=== PATIENT | female | born 1970 | race Two or more races ===

== ENCOUNTER 2017-06-03 12:37 | Inpatient (IN) | payer MEDICAID ==
[~2017-06-03] VITALS: Ht 170.2 cm; Wt 131.5 kg
[2017-06-03 12:50] VITALS: BP 139/84
[2017-06-03 13:46] LABS: BASOPHILS % (AUTO) 1.3 % (0.0-2.0); EOSINOPHILS % (AUTO) 0.3 % (0.0-3.0); HEMATOCRIT 42.8 % (37.0-47.0); HEMOGLOBIN 14.4 G/DL (12.0-16.0); LYMPHOCYTES % (AUTO) 26.6 % (20.0-45.0); MEAN CORPUSCULAR VOLUME 90 FL (80-99); NEUTROPHILS % (AUTO) 67.9 % (45.0-75.0); PLATELET COUNT 384 K/UL (150-450); RED BLOOD COUNT 4.77 M/UL (4.20-5.40); RED CELL DISTRIBUTION WIDTH 12.1 % (11.6-14.8); WHITE BLOOD COUNT 7.8 K/UL (4.8-10.8)
[2017-06-03 13:49] LABS: ANION GAP 12 mmol/L (5-15); BLOOD UREA NITROGEN 6 mg/dL (7-18); CALCIUM 9.7 MG/DL (8.5-10.1); CARBON DIOXIDE 25 MMOL/L (21-32); CHLORIDE 105 MMOL/L (98-107); CREATININE 0.9 MG/DL (0.55-1.30); POTASSIUM 3.7 MMOL/L (3.5-5.1); SODIUM 142 MMOL/L (136-145)
[2017-06-03 13:59] LABS: ALANINE AMINOTRANSFERASE 48 U/L (12-78); ALBUMIN 4.4 G/DL (3.4-5.0); ALBUMIN/GLOBULIN RATIO 1.4 (1.0-2.7); ALKALINE PHOSPHATASE 49 U/L (46-116); ASPARTATE AMINO TRANSFERASE 41 U/L (15-37); BILIRUBIN,TOTAL 0.4 MG/DL (0.2-1.0); CKMB 2.5 NG/ML (0.0-3.6); CREATINE KINASE 351 U/L (26-308)
--- NOTE | 2017-06-03 14:17 | Diagnostic Imaging Report ---
Indication: Chest pain Comparison: None A single view chest radiograph was obtained. Findings: Cardiomediastinal appearance is within normal limits for age. Pulmonary vascularity is appropriate. The diaphragmatic contour is smooth and costophrenic angles are sharp. No pleural effusions are identified. The bones are unremarkable. Impression: No acute findings
--- NOTE | 2017-06-03 14:25 | Diagnostic Imaging Report ---
Indication: Headache Technique: Contiguous 5 mm thick transaxial imaging of the head obtained in a Siemens Sensation [address] scanner. Soft tissue and bone windows generated. Automatic Exposure Control was utilized. Total Dose length Product (DLP): 1435.[address] Dose Index Volume (CTDIvol): 70.38 mGy Comparison: none Findings: The size and configuration of the cortical sulci, basal cisterns, and ventricles are within normal limits for age. There is no mass effect, midline shift, or edema identified. There is no evidence of acute hemorrhage or abnormal intra-axial or extra-axial fluid collections. The bones and soft tissues are unremarkable. Impression: No mass effect, edema or acute bleed. The CT scanner at [facility] is accredited by the [employer] and the scans are performed using dose optimization techniques as appropriate to a performed exam including Automatic Exposure control.
--- NOTE | 2017-06-03 15:33 | Diagnostic Imaging Report ---
Indication: Chest pain Technique: Continuous helical transaxial imaging of the chest was obtained from the thoracic inlet to the upper abdomen during rapid intravenous contrast administration. Arterial phase of enhancement obtained. Coronal 2-D reformats were also obtained and maximum intensity projection images in multiple planes. Study obtained in a Siemens sensation [address] Automatic Exposure Control was utilized. Total Dose length Product (DLP): 1454.[address] Dose Index Volume (CTDIvol): 47.94 mGy Comparison: None Findings: The pulmonary artery is well opacified and shows no filling defects. There is no adenopathy, pleural or pericardial effusions are identified. There is no aortic dissection or aneurysm identified within the chest. The lungs are clear. Visualized part of the upper abdomen is unremarkable. Mild endplate spurs throughout the thoracic spine. Impression: Negative CTA of the chest The CT scanner at [facility] is accredited by the [employer] and the scans are performed using dose optimization techniques as appropriate to a performed exam including Automatic Exposure control.
[2017-06-03 15:34] VITALS: BP 125/69
[2017-06-03] MEDS ORDERED: NKM (15:36)
[2017-06-03 16:31] VITALS: BP 134/86
[2017-06-03 20:00] VITALS: BP 113/63
[2017-06-03] MEDS: Zolpidem 5mg tab ORAL PRN (23:01)
[2017-06-04] VITALS: BP 104/66
--- NOTE | 2017-06-04 02:30 | History and Physical Report ---
DATE OF ADMISSION: 06/03/2017 REASON FOR ADMISSION: Neck, head, and chest pain. HISTORY OF PRESENT ILLNESS: This is a 47-year-old white female with no known history of cardiovascular disease. She states that over the past few weeks, she has had recurring difficulty with swallowing and chewing due to pain in her neck and head radiating to her chest area. She has seen her primary care physician and had a workup that included a cervical spine scan and swallow evaluation, which was described as essentially unrevealing. She has not had nausea, vomiting, choking, or cough. She came to the emergency room today because of her continued concern with the symptoms. PAST MEDICAL HISTORY: Otherwise unremarkable. MEDICATIONS: Prior to admission, none. ALLERGIES: None. SOCIAL HISTORY: Denies smoking, alcohol, or substance abuse. REVIEW OF SYSTEMS: A 10-point review of systems performed. All pertinent positives as outlined above. PHYSICAL EXAMINATION: GENERAL: Moderately obese female, in no acute distress. Slight anxious about her condition, however. VITAL SIGNS: Blood pressure is 134/86, pulse 89, respiratory rate 19, afebrile, and room air oxygen saturation 97%. HEENT: Oropharynx is clear. No thrush. NECK: Supple. in her jaw bone region. LUNGS: Clear. CARDIAC: Regular. Normal S1 and S2. ABDOMEN: Soft. EXTREMITIES: No edema. NEUROLOGIC: Nonfocal. LABORATORY DATA: Chemistry panel and CBC are within normal limits. Troponin is negative. DIAGNOSTIC DATA: CT angiogram of the chest was normal. Head CT was normal. Chest x-ray, no acute findings. EKG revealed sinus rhythm and nonspecific ST change. IMPRESSION: 1. Dysphagia due to throat and neck pain. 2. No signs of weight loss, dehydration, or hypovolemia. 3. No signs of acute coronary syndrome. PLAN: 1. Thyroid panel. 2. Repeat troponin level. 3. CT scan of the cervical spine and facial bones as well as video swallow study. 4. Calorie count. 5. Aspiration precautions. Emmett Ruiz M.D. : MEKA/bertin JOB#: [id number] CC:
[2017-06-04 04:00] VITALS: BP 116/62
--- NOTE | 2017-06-04 08:59 | Diagnostic Imaging Report ---
Indications: Pain Technique: Spiral images obtained through the facial bones. No IV contrast utilized. Multiplanar reconstructions were generated.Total dose length product 570 mGycm. CTDIvol(s) 28.19 mGy. Dose reduction achieved using automated exposure control Comparison: none Findings: No evidence of facial fracture. Intact mandible. No worrisome sinus opacification. The nasal septum is midline. The optic globes are intact. The visualized intracranial structures are unremarkable. Facial soft tissues are unremarkable. The dentition is intact Impression: Negative This agrees with the preliminary interpretation provided overnight by [facility] service. The CT scanner at [facility] is accredited by the [employer] and the scans are performed using protocols designed to limit radiation exposure to as low as reasonably achievable to attain images of sufficient resolution adequate for diagnostic evaluation.
--- NOTE | 2017-06-04 09:07 | Diagnostic Imaging Report ---
Indication: Pain, trauma Technique: Spiral acquisitions obtained through the cervical spine. No IV contrast utilized. Multiplanar reconstructions were generated. Total dose length product 733.31 mGycm. CTDIvol(s) 29.77 mGy. Dose reduction achieved using automated exposure control. Comparison: none Findings: Bony alignment is normal. Vertebral body heights are preserved. The disc spaces are preserved. At C2-3, there is fusion, presumably congenital, of the left facet. There is central posterior disc protrusion, which results in minimal compromise of the spinal canal, slight impingement on the anterior aspect of the cord. The neural foramina are preserved. At C3-4, posterior disc protrusion results in minimal narrowing of the spinal canal, does appear to impinge upon the anterior aspect of the cord. There is mild to moderate right neural foraminal narrowing. At C4-5, there is minimal narrowing of the disc space. At C5-6, there is moderate narrowing of the disc. There is mild narrowing of the left neural foramen. There does appear to be a broad-based central posterior disc protrusion which results in at least moderate narrowing of the spinal canal. Note, however, that the images in this area are somewhat noisy and the degree of pathology is difficult to assess. There is mild narrowing of the left neural foramen at this level. At C6-7, there is mild degenerative disc narrowing. There is mild narrowing of the left neural foramen. No significant disc bulge or protrusion or spinal stenosis. There is mild facet arthrosis on the left. At C7-T1, there is minimal narrowing of the disc. No significant disc bulge or protrusion or spinal stenosis. Included extraspinal soft tissues are unremarkable. Impression: Broad-based central disc protrusion at C5-6, not well demonstrated. The possibly resulting in significant compromise of the spinal canal. Further evaluation with MRI may be useful Other degenerative changes as detailed on a level by level bases above No acute bony trauma This agrees with the preliminary interpretation provided overnight by [facility]. The CT scanner at [facility] is accredited by the [employer] and the scans are performed using protocols designed to limit radiation exposure to as low as reasonably achievable to attain images of sufficient resolution adequate for diagnostic evaluation.
[2017-06-04 10:32] LABS: ALANINE AMINOTRANSFERASE 46 U/L (12-78); ALBUMIN 4.1 G/DL (3.4-5.0); ALBUMIN/GLOBULIN RATIO 1.4 (1.0-2.7); ALKALINE PHOSPHATASE 45 U/L (46-116); ANION GAP 11 mmol/L (5-15); ASPARTATE AMINO TRANSFERASE 39 U/L (15-37); BILIRUBIN,TOTAL 0.5 MG/DL (0.2-1.0); BLOOD UREA NITROGEN 7 mg/dL (7-18); CALCIUM 9.2 MG/DL (8.5-10.1); CARBON DIOXIDE 24 MMOL/L (21-32); CHLORIDE 106 MMOL/L (98-107); CHOLESTEROL 149 MG/DL (< 200); CREATININE 0.8 MG/DL (0.55-1.30); HDL CHOLESTEROL 44 MG/DL (40-60); SODIUM 141 MMOL/L (136-145); TRIGLYCERIDES 102 MG/DL (30-150)
--- NOTE | 2017-06-04 14:45 | Emergency Room Report ---
History of Present Illness General Chief Complaint: General Complaint Source: Patient Present Illness HPI Patient presents with several different complaints Patient complains of left upper chest heaviness and pain Patient reports that she has had difficulty swallowing Has had upper swallow study Patient reports facial imaging and neck imaging All within normal limits however she felt that with attempt at swallowing she was having increased discomfort Symptoms ongoing and worsening over the past several weeks Denies any vomiting or diarrhea however has had decreased oral intake Concomitantly as noted above patient also complained of the left upper midsternal heaviness Allergies: Coded Allergies: No Known Allergies (Unverified , 06/03/17) Patient History Past Medical History: see triage record Pertinent Family History: none Reviewed Nursing Documentation: PMH: Agreed, PSxH: Agreed Nursing Documentation-PMH Hx Cardiac Problems: No Hx Cancer: No Hx Gastrointestinal Problems: Yes - Gall Bladder Removal Review of Systems All Other Systems: negative except mentioned in HPI Physical Exam Vital Signs Date Time Temp Pulse Resp B/P (MAP) Pulse Ox O2 Delivery O2 Flow Rate FiO2 06/03/17 12:28 97.9 175 18 175/95 98 Room Air Sp02 EP Interpretation: reviewed, normal General Appearance: well appearing, no apparent distress Head: normocephalic, atraumatic Eyes: bilateral eye PERRL, bilateral eye EOMI ENT: hearing grossly normal, normal pharynx, TMs + canals normal, uvula midline Neck: full range of motion, supple, no meningismus, no bony tend Respiratory: lungs clear, normal breath sounds, no rhonchi, no respiratory distress, no retraction, no accessory muscle use Cardiovascular #1: normal peripheral pulses, regular rate, rhythm, no edema, no gallop, no JVD, no murmur Gastrointestinal: normal bowel sounds, non tender, soft, no mass, no organomegaly, non-distended, no guarding, no hernia, no pulsatile mass, no rebound Genitourinary: no CVA tenderness Musculoskeletal: normal inspection Neurologic: oriented x3, responsive, 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 nml as tested, motor strength/ tone normal, sensory intact Psychiatric: mood/affect normal Skin: normal color, no rash, warm/dry, palpation normal Lymphatic: normal inspection, no adenopathy Medical Decision Making Diagnostic Impression: Primary Impression: acute coronary syndrome ER Course Multiple differentials considered patient also did complain of heaviness and shortness of breath CT angios obtained CT head was negative CT chest was also negative Patient remained at baseline levels however given her concerns and increased complaints Patient was admitted for further evaluation Labs Test 06/03/17 13:08 06/04/17 05:30 White Blood Count 7.8 K/UL (4.8-10.8) Red Blood Count 4.77 M/UL (4.20-5.40) Hemoglobin 14.4 G/DL (12.0-16.0) Hematocrit 42.8 % (37.0-47.0) Mean Corpuscular Volume 90 FL (80-99) Mean Corpuscular Hemoglobin 30.2 PG (27.0-31.0) Mean Corpuscular Hemoglobin Concent 33.7 G/DL (32.0-36.0) Red Cell Distribution Width 12.1 % (11.6-14.8) Platelet Count 384 K/UL (150-450) Mean Platelet Volume 7.4 FL (6.5-10.1) Neutrophils (%) (Auto) 67.9 % (45.0-75.0) Lymphocytes (%) (Auto) 26.6 % (20.0-45.0) Monocytes (%) (Auto) 4.0 % (1.0-10.0) Eosinophils (%) (Auto) 0.3 % (0.0-3.0) Basophils (%) (Auto) 1.3 % (0.0-2.0) Sodium Level 142 MMOL/L (136-145) 141 MMOL/L (136-145) Potassium Level 3.7 MMOL/L (3.5-5.1) 4.0 MMOL/L (3.5-5.1) Chloride Level 105 MMOL/L (98-107) 106 MMOL/L (98-107) Carbon Dioxide Level 25 MMOL/L (21-32) 24 MMOL/L (21-32) Anion Gap 12 mmol/L (5-15) 11 mmol/L (5-15) Blood Urea Nitrogen 6 mg/dL (7-18) 7 mg/dL (7-18) Creatinine 0.9 MG/DL (0.55-1.30) 0.8 MG/DL (0.55-1.30) Estimat Glomerular Filtration Rate > 60 mL/min (>60) > 60 mL/min (>60) Glucose Level 110 MG/DL (74-106) 95 MG/DL (74-106) Calcium Level 9.7 MG/DL (8.5-10.1) 9.2 MG/DL (8.5-10.1) Total Bilirubin 0.4 MG/DL (0.2-1.0) 0.5 MG/DL (0.2-1.0) Aspartate Amino Transf (AST/SGOT) 41 U/L (15-37) 39 U/L (15-37) Alanine Aminotransferase (ALT/SGPT) 48 U/L (12-78) 46 U/L (12-78) Alkaline Phosphatase 49 U/L (46-116) 45 U/L (46-116) Total Creatine Kinase 351 U/L (26-308) Creatine Kinase MB 2.5 NG/ML (0.0-3.6) Creatine Kinase MB Relative Index 0.7 Troponin I 0.000 ng/mL (0.000-0.056) 0.000 ng/mL (0.000-0.056) Total Protein 7.6 G/DL (6.4-8.2) 7.0 G/DL (6.4-8.2) Albumin 4.4 G/DL (3.4-5.0) 4.1 G/DL (3.4-5.0) Globulin 3.2 g/dL 2.9 g/dL Albumin/Globulin Ratio 1.4 (1.0-2.7) 1.4 (1.0-2.7) Lipase 119 U/L (73-393) Triglycerides Level 102 MG/DL (30-150) Cholesterol Level 149 MG/DL (< 200) LDL Cholesterol 94 mg/dL (<100) HDL Cholesterol 44 MG/DL (40-60) Cholesterol/HDL Ratio 3.4 (3.3-4.4) Thyroid Stimulating Hormone (TSH) 1.890 uiU/mL (0.358-3.740) EKG Diagnostic Results Rate: normal Rhythm: NSR ST Segments: no acute changes Rhythm Strip Diag. Results EP Interpretation: yes Rate: 77 Rhythm: NSR, no PVC's, no ectopy Chest X-Ray Diagnostic Results Chest X-Ray Diagnostic Results : Chest X-Ray Ordered: Yes # of Views/Limited/Complete: 1 View Indication: Chest Pain EP Interpretation: Yes Interpretation: no consolidation, no effusion, no pneumothorax, no acute cardiopulmonary disease Impression: No acute disease Electronically Signed by: Adriana Bach, CT/MRI/US Diagnostic Results CT/MRI/US Diagnostic Results : Impression CT head no acute disease CT chest no acute disease Last Vital Signs Date Time Temp Pulse Resp B/P (MAP) Pulse Ox O2 Delivery O2 Flow Rate FiO2 06/04/17 04:00 71 06/04/17 04:00 98.0 20 116/62 96 Room Air Status: improved Disposition: ADMITTED INPATIENT Condition: Serious Referrals: [facility],REFERRING (PCP) ADRIANA BACH D.O. Jun 04, 2017 14:45
--- NOTE | 2017-06-04 16:01 | Cardiology Report ---
APPROVED REPORT EKG Measurement Heart [id number] ID [id number] Normal sinus rhythm Low voltage QRS Cannot rule out Inferior infarct, age undetermined Cannot rule out Anterior infarct, age undetermined Abnormal ECG
[2017-06-04] MEDS ORDERED: Cyclobenzaprine 10mg Tab ORAL SCH (18:00)
[2017-06-04] MEDS ORDERED: Solu-MEDROL 40mg Inj IVP SCH (21:00)
[2017-06-04] MEDS: Zolpidem 5mg tab ORAL PRN (23:40)
[2017-06-05] VITALS: BP 124/78
[2017-06-05 08:15] VITALS: BP 152/87
[2017-06-05] MEDS ORDERED: Solu-MEDROL 40mg Inj IVP SCH (09:00)
[2017-06-05] MEDS: Cyclobenzaprine 10mg Tab ORAL SCH ×3 (09:35→17:40)
[2017-06-05 15:57] VITALS: BP 141/86
[2017-06-05 20:00] VITALS: BP 122/69
[2017-06-05] MEDS: Zolpidem 5mg tab ORAL PRN (21:48)
--- NOTE | 2017-06-05 23:05 | Consultation ---
DATE OF CONSULTATION: 06/05/2017 GASTROENTEROLOGY CONSULTATION CHIEF COMPLAINT: Dysphagia. HISTORY OF PRESENT ILLNESS: This is a very anxious 47-year-old female with one month history of difficulty with swallowing and numerous other complaints including chest pain, shortness of breath, swelling in the right neck and move to the left neck and so on and so forth. Apparently, had a workup before as an outpatient with CT scan and swallow evaluation, which apparently was nondiagnostic. The patient is very anxious and cannot eat and she was admitted to the hospital for that reason. Denies any significant heartburn. Denies any food getting stuck in her esophagus, but most of her complaint is about her throat and swallowing problem. PAST MEDICAL HISTORY: History of osteoarthritis. PAST SURGICAL HISTORY: Tonsillectomy and cholecystectomy. FAMILY HISTORY: Noncontributory. ALLERGIES: No known drug allergies. MEDICATIONS: Please see medication reconciliation list. SOCIAL HISTORY: The patient denies any tobacco, alcohol, or drug abuse. REVIEW OF SYSTEMS: A 10-point review of systems was performed and pertinent positives in HPI. PHYSICAL EXAMINATION: VITAL SIGNS: Temperature is 98.1, pulse 74, respirations 20, and blood pressure 122/78. HEENT: Normocephalic, atraumatic. Sclerae anicteric. NECK: Supple. No evidence of lymphadenopathy. CARDIOVASCULAR: Regular rate and rhythm. Plus S1 and S2. LUNGS: bilaterally. ABDOMEN: Positive bowel sounds. Soft, nontender. No rebound. No guarding. EXTREMITIES: No cyanosis. No clubbing. No edema. LABORATORY DATA: CBC within normal limits. Chem-7 within normal limits. Liver function tests within normal limits. ASSESSMENT AND PLAN: This is a 47-year-old female with complaint of swallowing problems of unknown etiology. I highly doubt that there is any mechanical problem. She is 47 without any stroke or any other neurological symptoms. No evidence of Parkinson disease and the duration of one month is, I am not sure what that be related to, what I would recommend the patient to be seen by speech therapist. We will start the patient on PPI twice a day for possible acid reflux causing swallowing problems. The patient most probably will benefit from psychiatric assessment to make sure this is not an anxiety presenting itself with difficulty with swallowing. I want to thank, Dr. Emmett Ruiz, for this kind referral. Sivagary Monsalve M.D. DR: NARDA JOB#: [id number] CC: Emmett Ruiz M.D.
--- NOTE | 2017-06-05 23:05 | Progress Note ---
DATE: 06/04/2017 INTERNAL MEDICINE PROGRESS NOTE SUBJECTIVE: The patient is complaining of neck and head pain since admission. She has difficulty chewing and swallowing but has not been choking. She is able to eat soft food. Imaging studies so far reveal normal CT angio of the chest. Normal head CT and normal CT scan of the facial bones. Her cervical spine CT is notable for narrowing and predominantly at C3-C6 with disc protrusion at C5-C6. OBJECTIVE: There is some muscle spasm. LUNGS: Clear. CARDIAC: Regular. Normal S1 and S2. ABDOMEN: Soft. EXTREMITIES: No edema. PLAN: 1. Await swallow evaluation and video swallow study. 2. Steroid trial and muscle relaxant. 3. MRI of the cervical spine to follow. 4. We will likely need to follow up with a spine surgeon long-term. Emmett Ruiz M.D. DR: Maryjane JOB#: [id number] CC:
--- NOTE | 2017-06-06 01:30 | Progress Note ---
DATE: 06/05/2017 INTERNAL MEDICINE PROGRESS NOTE SUBJECTIVE: The patient has continued complaints of headache, neck, and difficulty chewing. Her appetite is good, but she is only eating soft foods. She has no difficulty swallowing, only chewing. OBJECTIVE: NECK: Supple. OROPHARYNX: Clear. LUNGS: Clear. CARDIAC: Regular. ABDOMEN: Soft. EXTREMITIES: No edema. IMPRESSION: Cervical disc disease, which is likely contributing to her presenting symptoms. At this time, we are awaiting MRI scan for further definition of the spine in addition to a video fluoroscopy esophagogram. Once this data is available, the patient will be referred to the appropriate subspecialty for further workup. Emmett Ruiz M.D. DR: BRI JOB#: [id number] CC:
[2017-06-06 04:00] VITALS: BP 122/81
[2017-06-06 08:00] VITALS: BP 129/83
[2017-06-06] MEDS: Cyclobenzaprine 10mg Tab ORAL SCH ×3 (08:20→17:11)
--- NOTE | 2017-06-06 10:12 | General Progress Note ---
Assessment/Plan Assessment/Plan Assessment - atypical dysphagia - r/o significant cervical spine disease - r/o esophageal spasm Recommendations - await advanced C spine imaging - await swallow study - po as tolerated Subjective Allergies: Coded Allergies: No Known Allergies (Unverified , 06/03/17) Subjective No new complaints still c/o neck fullness difficulty swallowing no vomiting Objective Last 24 Hour Vital Signs Date Time Temp Pulse Resp B/P (MAP) Pulse Ox O2 Delivery O2 Flow Rate FiO2 06/06/17 08:11 Room Air 06/06/17 08:00 97.7 80 20 129/83 98 06/06/17 04:00 97.7 69 21 122/81 98 06/05/17 20:00 Room Air 06/05/17 20:00 98.2 90 20 122/69 97 06/05/17 15:57 98.4 79 23 141/86 97 Room Air Intake and Output 06/05/17 06/06/17 19:00 07:00 # Voids 2 # Bowel Movements 1 Laboratory Tests 06/05/17 11:00: Urine HCG, Qualitative Negative Height (Feet): 5 Height (Inches): 7.00 Weight (Pounds): 290 Objective Obese WW NCAT supple CTA RR soft NT ND no edema LUIS F VALDES Jun 06, 2017 10:12
[2017-06-06 16:00] VITALS: BP 110/73
--- NOTE | 2017-06-06 16:56 | Diagnostic Imaging Report ---
Indication: Neck and back pain x1 month Technique: Sagittal T1 FLAIR PROPELLER, sagittal T2 PROPELLOR, sagittal STIR, axial T2 PROPELLER, axial 3D COSMIC ASPIR images were obtained through the cervical spine Comparison: CT scan dated June 03, 2017 Findings: There is straightening of the normal cervical lordosis. Otherwise normal bony alignment. The vertebral body marrow signal is normal. The vertebral body heights are preserved. There is degenerative disc narrowing at C5-6. The intrinsic cord signal is normal. At C2-3, there is minimal circumferential annular bulge and posterior osteophytes, but no significant spinal stenosis or neural foraminal stenosis is demonstrated. At C3-4, there is thickening of the posterior longitudinal ligament as well as circumferential annular bulge and broad-based mild central posterior disc protrusion/osteophyte complex. This results in only borderline narrowing of the spinal canal. There is mild narrowing of the left neural foramen at this level. At C4-5, no significant disc bulge or protrusion or spinal stenosis. There is minimal narrowing of left neural foramen. At C5-6, there is narrowing of the disc. There is circumferential annular bulge which results in borderline narrowing of the spinal canal, to 9 mm minimum AP diameter. No significant cord impingement is demonstrated. There is mild bilateral neural foraminal stenosis. At C6-7, there is left paracentral posterior disc protrusion, broad-based, which may impinge slightly upon the left lateral recess. The neural foramina are nonstenotic. At C7-T1, no significant disc bulge or protrusion, spinal stenosis, or neural foraminal stenosis. The included extraspinal soft tissues are unremarkable. Impression: No acute abnormality Mild degenerative changes, as detailed on a level by level basis above, similar to those reported on recent cervical spine CT
--- NOTE | 2017-06-06 17:04 | Diagnostic Imaging Report ---
Indication: 47-year-old female with neck and back pain x1 month Technique: Sagittal T1 fast spin echo, sagittal T2 fast echo, sagittal STIR, axial T2 fast spin echo and axial T1 images were obtained through the thoracic spine Comparison: none Findings: Bony alignment is normal. Vertebral body heights are preserved. Some of the discs are desiccated but the disc spaces are largely preserved. Vertebral body marrow signal is normal. Intrinsic cord signal is normal. At T5-6, there is minimal posterior disc bulge which does not significantly compromise the spinal canal. At the other levels, no significant disc bulge or protrusion, spinal stenosis, or neural foraminal narrowing. The included extraspinal soft tissues are unremarkable. Impression: Minimal degenerative change, as described above. No acute or significant abnormality
--- NOTE | 2017-06-06 17:50 | Neurology Progress Note ---
Objective Physical Exam Last Vital Signs Date Time Temp Pulse Resp B/P (MAP) Pulse Ox O2 Delivery O2 Flow Rate FiO2 06/06/17 17:08 Room Air 06/06/17 16:00 97.7 78 20 110/73 06/06/17 08:00 98 Impression/Recommendations Problems: (1) new onset of painful dysphagia (2) Headache, tension-type (3) Anxiety Status: stable Recommendations #[id number] LUIS M GROSSMAN Jun 06, 2017 17:50
[2017-06-06] MEDS: clonazePAM 0.5mg tab ORAL SCH (18:00)
--- NOTE | 2017-06-06 18:28 | Cardiology Report ---
APPROVED REPORT EKG Measurement Heart [id number] Suspect arm lead reversal, interpretation assumes no reversal Unusual P axis, possible ectopic atrial rhythm Left posterior fascicular block Inferior infarct, age undetermined Cannot rule out Anterior infarct, age undetermined Abnormal ECG
[2017-06-06 20:00] VITALS: BP 130/84
[2017-06-06] MEDS: Zolpidem 5mg tab ORAL PRN (20:38)
--- NOTE | 2017-06-07 00:15 | Consultation ---
DATE OF CONSULTATION: 06/06/2017 NEUROLOGICAL CONSULTATION CONSULTING PHYSICIAN: Wes Mcdonald M.D. REQUESTING PHYSICIAN: Emmett Ruiz M.D. HISTORY OF PRESENT ILLNESS: The patient is a 47 years old female, seen in neurological consultation to evaluate the presence of myasthenia gravis versus myasthenic syndrome. The patient informed me that she was in her usual state of health with only medical issue is her osteoarthritis affecting lower back and both knees, then about one month ago after having drink of sprite, she felt immediately feeling sensation of that right side of the neck and head like "clogged up." She developed severe pressure headache. She also noted to have increased blood pressure, she developed severe anxiety, "panic attacks," and swallowing difficulties mainly swallowing of hard food, but no difficulties with liquids. Swallowing become painful. In addition, she developed some aches and pains in her upper back and neck, persistent dull pressure likes and headaches, continues difficulty swallowing. The patient felt increasing symptomatology, called paramedics. Blood pressure in the field 168/120, repeat study 160/118, heart rate of 80, and respirations 18. The patient was complaining of severe neck pain for the last few weeks. There was no nausea or vomiting. No chest pain. No weakness. She was brought to the emergency room presenting with upper chest heaviness and pain, difficulty swallowing, which become worsening in the last few weeks, but she developed some upper midsternal heaviness. Blood pressure remained high 175/95 on examination, otherwise . She had additional diagnostic studies, this included CT scan of the brain, which revealed no any acute intracranial abnormalities, no midline shift. CT angiogram of the chest with contrast was negative. A chest x-ray revealed no acute abnormalities and no mass lesions. Facial bones CT scan without contrast, no abnormality, and CT scan of the cervical spine revealed multilevel degenerative joint disease, no evidence of cord compression, although C5-C6 disc protrusion caused moderate narrowing of spinal canal. The patient's gastroenterology workup was obtained confirming presence of swallowing problem of unknown etiology. A swallow study was obtained and this was suggestive that patient may have a neuromuscular abnormality and with myasthenia gravis and for this, Neurology consult was requested. Meanwhile, the patient to continue with diagnostic studies including thoracic spine MRI, which was negative and the cervical spine MRI revealed multilevel degenerative joint disease with no evidence of cord compression. Her laboratory work included a normal CBC study, negative test. Her CMC study revealed a glucose 110, AST 41, and CPK 351, otherwise normal study including TSH, lipid panel, and troponin. Her vital signs during hospitalization were unremarkable with initial elevation of blood pressure then subsiding down to normal, latest 110/73. PAST MEDICAL HISTORY: History of osteoarthritis affecting low back and knees, she is maintained on Motrin, Aleve, at times for allergies, Benadryl. The patient denies any other major medical problems. She denies being depressed or anxious. 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 No alcohol. No drug abuse. Nonsmoker. FAMILY HISTORY: Noncontributory. REVIEW OF SYMPTOMS: Anxious, concerned with the increasing difficulty swallowing, and increase in blood pressure. She has dull tension headaches, aches and pains in her upper back and neck, weakness of both upper extremities, poor difficulty swallowing especially solid food causing some retrosternal pain. She has some problem with walking, stating that her swallowing affecting neck, face, and gait. PHYSICAL EXAMINATION: GENERAL: A well-developed, moderately obese female, not in acute distress. VITAL SIGNS: Stable. Blood pressure 128/80, respirations 14, and temperature 98.1. HEENT: Head normocephalic. No evidence of trauma. Eyes, ears, and throat are clear. NECK: Supple. No meningeal signs. There is mild tenderness on palpation of cervical paraspinal region. Range of motion normal. There is mild tenderness on palpation of thoracic paraspinal region. Range of motion normal. EXTREMITIES: Upper and lower extremities without clubbing, cyanosis, or edema. Peripheral pulses, 1+ and symmetric. MENTAL STATUS: The patient is alert and oriented x3. Her speech is fluent. Language intact. There is no aphasia. No apraxia. The patient is somewhat anxious and very concerned with ongoing symptomatology and appreciating lower extremity workup. CRANIAL NERVE II: Pupils both responding to light and accommodation. Extraocular movements intact. No nystagmus. CRANIAL NERVE V: Normal corneal responses. CRANIAL NERVE VII: No facial asymmetry. CRANIAL NERVE VIII: Normal hearing. CRANIAL NERVE IX THROUGH XII: Tongue is in midline. Symmetric palate elevation. MOTOR EXAMINATION: Motor examination, normal muscle tone. Strength is 5/5 in all extremities. No involuntary movement. Deep tendon reflexes, 1+ symmetric with downgoing toes on both sides. Sensory exam normal to pinprick and light touch. Gait is stable. IMPRESSION: 1. This is a 47-year-old female with a new onset of painful dysphagia, tension headache, aches and pains of upper back and neck. No evidence of neuromuscular disorder. No evidence of focal neurological deficit noted. 2. Multilevel cervical discogenic disease with no evidence of cord lesion. 3. Anxiety syndrome. 4. Obesity. 5. Osteoarthritis. RECOMMENDATIONS: We will rule out collagen vascular disease, myasthenic syndrome. Laboratory work will include acetylcholine receptor antibody, MARY ANN, ANCA, , sedimentation rate, and CRP. The patient will start on Klonopin 0.25 mg three times a day. The patient to complete her gastrointestinal workup. Thank you for allowing me to see this interesting patient in neurological consultation. Wes Mcdonald M.D. DR: LILIA JOB#: [id number] CC:
[2017-06-07 04:47] VITALS: BP 130/66
[2017-06-07 08:00] VITALS: BP 120/78
[2017-06-07] MEDS: Cyclobenzaprine 10mg Tab ORAL SCH ×3 (08:27→17:34)
[2017-06-07] MEDS: clonazePAM 0.5mg tab ORAL SCH ×3 (09:00→17:34)
--- NOTE | 2017-06-07 11:45 | Progress Note ---
DATE: 06/07/2017 SUBJECTIVE: The patient continues to complain of difficulty swallowing, pain in her neck, but no choking. OBJECTIVE: VITAL SIGNS: Blood pressure 129/83, heart rate 80, and respiratory rate 20. Afebrile. IMAGING: Studies were notable for abnormal swallow mechanism in the distal esophagus. MRI of the spine revealed mild degenerative disease. seen. Rheumatologic panel is pending. IMPRESSION: 1. Dysphagia. 2. Cervical disc disease. 3. Possible sicca syndrome. PLAN: GI and neurologic followup. Await laboratory studies. Aspiration precaution. Final recommendations and discharge plan to follow sales consultant insurance's input. Emmett Ruiz M.D. DR: CARY JOB#: [id number] CC:
[2017-06-07 12:00] VITALS: BP 116/85
[2017-06-07 16:00] VITALS: BP 129/87
[2017-06-07 20:00] VITALS: BP 113/70
--- NOTE | 2017-06-07 22:03 | General Progress Note ---
Assessment/Plan Assessment/Plan Assessment - atypical dysphagia - r/o significant cervical spine disease - r/o esophageal spasm Recommendations - PPI - await esophogram - po as tolerated Subjective Allergies: Coded Allergies: No Known Allergies (Unverified , 06/03/17) Subjective No new complaints still c/o neck fullness difficulty swallowing no vomiting Objective Last 24 Hour Vital Signs Date Time Temp Pulse Resp B/P (MAP) Pulse Ox O2 Delivery O2 Flow Rate FiO2 06/07/17 20:00 97.3 71 20 113/70 98 06/07/17 16:00 98.1 82 20 129/87 98 06/07/17 12:00 98.2 81 20 116/85 98 06/07/17 08:00 96.4 85 20 120/78 06/07/17 04:47 98.1 77 18 130/66 99 Intake and Output 06/06/17 06/07/17 19:00 07:00 Intake Total 240 ml 240 ml Balance 240 ml 240 ml Intake Oral 240 ml 240 ml # Voids 3 2 Height (Feet): 5 Height (Inches): 7.00 Weight (Pounds): 290 Objective Obese WW NCAT supple CTA RR soft NT ND no edema LUIS F VALDES Jun 07, 2017 22:03
[2017-06-08] VITALS (7 sets, daily range): BP systolic 97–131; BP diastolic 65–87
--- NOTE | 2017-06-08 07:15 | Progress Note ---
DATE: 06/07/2017 SUBJECTIVE: Condition unchanged. The patient still complains of difficulty chewing and swallowing due to pain. Diagnostic workup in progress. Neurology and GI consults and followups appreciated. OBJECTIVE: VITAL SIGNS: Stable, afebrile. HEENT: Oropharynx clear. NECK: Supple. Loss of curvature of neck noted. LUNGS: Clear. CARDIAC: Regular. ABDOMEN: Soft. EXTREMITIES: No edema. IMPRESSION: 1. Cervical disk disease. 2. Dysphagia. 3. Obesity. PLAN: 1. Await MRI imaging of the soft tissues of the neck. 2. Await serologies that have been sent out with regard to myasthenia gravis and rheumatologic disorders. 3. Continue dietary restrictions and aspiration precautions. Emmett Ruiz M.D. DR: LALIT JOB#: [id number] CC:
[2017-06-08] MEDS: Cyclobenzaprine 10mg Tab ORAL SCH ×3 (08:19→18:35)
[2017-06-08] MEDS: clonazePAM 0.5mg tab ORAL SCH ×3 (08:19→18:35)
--- NOTE | 2017-06-08 12:43 | Diagnostic Imaging Report ---
Indication: Dysphagia, pain on the right side when swallowing, sensation of things stuck Technique: Patient ingested effervescent granules, thick and thin liquid barium, and rapid sequence spot images, static spot and overhead images were obtained Comparison: none Findings: There is a slight degree of esophageal dysmotility with some tertiary contractions, particularly distally. There is some delayed emptying of residual contrast. No strictures, ulcerations, or intraluminal filling defects demonstrated. There is a minimal sliding-type hiatal hernia. No gastroesophageal reflux was observed fluoroscopically. The stomach appears unremarkable. Impression: Mild esophageal dysmotility. This could be age-related or secondary to reflux Minimal sliding-type hiatal hernia Otherwise unremarkable
--- NOTE | 2017-06-08 14:15 | Diagnostic Imaging Report ---
Indication: Neck pain when swallowing Technique: Sagittal T 2 fast spin-echo, coronal T1 and fast spin echo, coronal T2 fat saturated, coronal T2 STIR, axial T2 STIR, axial T1 fast spin echo, axial T2 fat saturated, pre and postcontrast axial T1 fat saturated fast spin echo, postcontrast coronal T1 fast spin echo images of the neck Comparison: none Findings: 6 mm high T2 intensity nodule is seen within the right thyroid lobe. No abnormal cervical fluid collections demonstrated. No cervical mass or adenopathy. There is asymmetric appearance of the left internal jugular vein, likely reflecting sluggish flow. There may be some narrowing of the down stream internal jugular vein just above the confluence with the subclavian vein. No unusual contrast enhancing lesion demonstrated. The nasopharynx, oropharynx, hypopharynx and larynx all appear unremarkable. The upper mediastinum appears unremarkable. The salivary glands are unremarkable. There is degenerative cervical spondylosis at C5-6 and C6-7. This is also described on recent cervical spine MRI. Impression: No acute abnormality or findings to explain stated clinical history of neck pain with swallowing. Degenerative cervical spondylosis, previously reported Incidental finding subcentimeter thyroid nodule. No further follow-up necessary
--- NOTE | 2017-06-08 21:04 | General Progress Note ---
Assessment/Plan Assessment/Plan Assessment - atypical dysphagia - r/o significant cervical spine disease - possible component of esophageal dysmotility Recommendations - PPI - outpatient esophageal manometry - po as tolerated - d/c planning Subjective Allergies: Coded Allergies: No Known Allergies (Unverified , 06/03/17) Subjective No new complaints able to tolerate soft foods no vomiting d/w pt re esophogram results Objective Last 24 Hour Vital Signs Date Time Temp Pulse Resp B/P (MAP) Pulse Ox O2 Delivery O2 Flow Rate FiO2 06/08/17 20:00 97.8 83 19 113/76 96 Room Air 06/08/17 16:00 98.7 80 20 97/65 96 06/08/17 12:00 99.0 96 19 110/82 96 Room Air 06/08/17 08:07 98.3 68 18 108/77 95 Room Air 06/08/17 04:25 97.7 75 19 116/77 100 06/08/17 00:00 97.8 79 20 100/67 95 Intake and Output 06/07/17 06/08/17 19:00 07:00 Intake Total 480 ml Balance 480 ml Intake Oral 480 ml # Voids 3 Height (Feet): 5 Height (Inches): 7.00 Weight (Pounds): 290 Objective Obese WW NCAT supple CTA RR soft NT ND no edema LUIS F VALDES Jun 08, 2017 21:03
[2017-06-08] MEDS: Zolpidem 5mg tab ORAL PRN (23:24)
--- NOTE | 2017-06-08 23:46 | Progress Note ---
DATE: 06/08/2017 INTERNAL MEDICINE PROGRESS NOTE SUBJECTIVE: The patient still complains of some pain with swallowing and difficulty with solids, however, she was seen by Gastrointestinal and Neurology and case was discussed in detail. She has not been vomiting and she is able to tolerate soft foods. Laboratories are noted. OBJECTIVE: VITAL SIGNS: Blood pressure of 113/76, pulse 83, respirations 19, and afebrile. Exam remains unremarkable. ASSESSMENT: 1. Atypical dysphagia. No signs of clinically significant cervical spine disease, possible component of esophageal dysmotility. 2. Anxiety. 3. Imaging studies discussed in detail with the patient. PLAN: 1. Check MRI of the brain. 2. Continue current diet. 3. Discharge planning with completion of workup as outpatient to include esophageal manometry and follow up on the results of serologies for myasthenia gravis that are still pending. Emmett Ruiz M.D. DR: ALLIT JOB#: [id number] CC:
[2017-06-09] MEDS: clonazePAM 0.5mg tab ORAL SCH ×2 (07:58→12:51)
[2017-06-09] MEDS: Cyclobenzaprine 10mg Tab ORAL SCH ×2 (07:58→12:50)
[2017-06-09 08:00] VITALS: BP 117/84
--- NOTE | 2017-06-09 09:56 | Diagnostic Imaging Report ---
Indication: Dysphagia Technique: MRI the brain performed utilizing T1 sagittal, T2 axial, T1 FLAIR axial, T2 FLAIR axial, T2*GRE and diffusion axial images without gadolinium. Comparison: MRI of the face 06/08/2017; CT of the head 06/03/2017 Findings: Note that given patient's large body habitus, the dedicated head coil could not be used and a horseshoe coil was instead was employed. This resulted in imaged degradation, particularly affecting the anterior/frontal aspects of acquired images. No diffusion abnormalities are seen on diffusion weighted imaging. The sulci, ventricles and cisterns are normal for age. There is no shift of midline structures. No significant extra-axial collections of fluid or blood are demonstrated. The sella and parasellar regions are grossly unremarkable. Expected signal flow voids are seen of the vessels of the skull base. Visualized mastoid air cells and paranasal sinuses are unremarkable. No focal bony calvarium or soft tissue lesions are seen. Impression: Limited exam as above. No evidence of acute infarct, intracranial hemorrhage, mass effect or midline shift.
[2017-06-09 12:00] VITALS: BP 131/83
--- NOTE | 2017-06-09 13:07 | Neurology Progress Note ---
Interim History Interim History ROS Limited/Unobtainable: No Complaints: painful swollowing, radiating to head,neck Events: stable Objective Physical Exam Last Vital Signs Date Time Temp Pulse Resp B/P (MAP) Pulse Ox O2 Delivery O2 Flow Rate FiO2 06/09/17 12:00 97.3 89 20 131/83 100 Room Air General: well developed, no acute distress, other - morbid obesity Head: normocophalic, atraumatic Neck: no rigidity EENT: benign Neurologic Exam Mental Status: awake, alert, oriented x4, normal cognition, good mathematical skills, normal recent memory, normal remote memory, preserved visuospatial function, other - anxious Speech: normal speech, no dysarthia Language: normal language, no aphasia Cranial Nerve II: fundus normal, visual escobedo, no papilledema Cranial Nerves III, IV, : PERRLA, EOMI, pupils Cranial Nerve V: normal facial sensations, temporales function normal, masseters function normal, pterygoids function normal Cranial Nerve VII: no facial asymmetry, normal facial expressions Cranial Nerve VIII: normal hearing, no nystagmus Cranial Nerve IX: normal palate elevation, gag response Cranial Nerve X: no voice hoarseness Cranial Nerve XI: SCM symmetric, trapezii function normal Cranial Nerve XII: tongue midline, no tongue atrophy/fasciculations Motor System: normal muscle tone, strength 5/5, no involuntary movement, no muscle wasting Sensory: normal pinprick, normal light touch, normal position sense, normal graphesthesia Coordination: normal finger to nose bilaterally, normal heel to kovacs bilaterally, negative Romberg test Deep Tendon Reflexes: 1+ bicep (L), 1+ bicep (R), 1+ tricep (L), 1+ tricep (R) , 1+ brachioradialis (L), 1+ brachioradialis (R), 1+ knee (L), 1+ knee (R), 1+ ankle (L), 1+ ankle (R) Reflexes: flexor plantar (L), flexor plantar (R) Stance: normal Gait: stable, normal regular, heel + toe gait Impression/Recommendations Problems: (1) new onset of painful dysphagia (2) Headache, tension-type (3) Anxiety Status: stable Recommendations #[id number] w/u negative neuro nonfocal ok clonopin 0.25 mg q hs or flexeryl 10mg bid neuro stable for d/c LUIS M GROSSMANb 8, 2018 13:07
--- NOTE | 2017-06-09 21:04 | General Progress Note ---
Assessment/Plan Assessment/Plan Assessment - atypical dysphagia - r/o significant cervical spine disease - possible component of esophageal dysmotility Recommendations - PPI - outpatient esophageal manometry - po as tolerated - d/c planning Subjective Allergies: Coded Allergies: No Known Allergies (Unverified , 06/03/17) Subjective No new complaints able to tolerate soft foods no vomiting advised to see HMO PMD as outpt for GI w/u Objective Last 24 Hour Vital Signs Date Time Temp Pulse Resp B/P (MAP) Pulse Ox O2 Delivery O2 Flow Rate FiO2 06/09/17 12:00 97.3 89 20 131/83 100 Room Air 06/09/17 08:00 97.7 104 20 117/84 100 Room Air 06/09/17 00:31 97.4 06/08/17 23:56 97.4 69 19 131/87 98 Room Air Intake and Output 06/08/17 06/09/17 19:00 07:00 Intake Total 540 ml 240 ml Balance 540 ml 240 ml Intake Oral 540 ml 240 ml # Voids 3 1 Height (Feet): 5 Height (Inches): 7.00 Weight (Pounds): 290 Objective Obese WW NCAT supple CTA RR soft NT ND no edema LUIS F VALDES Jun 09, 2017 21:04
--- NOTE | 2017-06-10 13:39 | Discharge Summary ---
Discharge Summary Hospital Course Date of Admission Jun 03, 2017 at 13:35 Date of Discharge Jun 09, 2017 at 16:23 Admitting Diagnosis ACS HPI Jessica Schmidt is a 47 year old female who was admitted on Jun 03, 2017 at 13:35 for Acute Coronary Syndrome Hospital Course [id number] Discharge Discharge Disposition Patient was discharged to Home (01) Discharge Diagnoses: Stacia Bailey NP Jun 10, 2017 13:39
--- NOTE | 2017-06-11 04:45 | Discharge Summary 2 SIG ---
DATE OF ADMISSION: 06/03/2017 DATE OF DISCHARGE: 06/09/2017 CONSULTANTS: 1. Sepideh Gibson M.D. 2. Wes Mcdonald M.D. BRIEF HOSPITAL COURSE: The patient is a 47-year-old white female with no known history of cardiovascular disease, who stated that over the past four weeks, she has been having recurring difficulty with swallowing and chewing due to pain in the neck and had radiating to her chest area. She was seen by her primary care physician and had a workup done that included cervical spine scan and swallow evaluation, which was described as essentially unrevealing. She was admitted for evaluation of dysphagia due to throat and neck pain. Initial troponin was negative. Serial troponins were monitored. GI was consulted. She was started on proton-pump inhibitors for possible acid reflux causing swallowing problems. She underwent neurological evaluation. She was given a steroid trial and muscle relaxants. MRI of the cervical spine showed no acute abnormality. MRI of the brain showed no acute infarct, intracranial hemorrhage, mass effect, or midline shift. Facial CT was negative. She was seen by GI for atypical dysphagia. There was no significant cervical spine disease noted. The thoracic MRI was negative. Cervical MRI revealed multilevel degenerative joint disease. No evidence of cord compression. Lab work included normal WBC. Diet was advanced. Brain MRI showed no evidence of acute infarct, intracranial hemorrhage, mass effect, or midline shift. Thoracic spine MRI showed no acute abnormality. She was eventually discharged home. FINAL DIAGNOSES: 1. Atypical dysphagia, possible component of esophageal dysmotility. 2. Anxiety disorder. DISPOSITION: The patient was discharged home. DISCHARGE INSTRUCTIONS: Follow up with PMD in a week. Emmett Ruiz M.D. I have been assigned to dictate discharge summary on this account and I was not involved in the patient's management. Stacia Bailey N.P. DR: Parmjit JOB#: [id number] CC: ALICIA
--- NOTE | 2017-06-13 13:47 | Diagnostic Imaging Report ---
Indication: Dysphasia Procedure and findings: Real-time fluoroscopic imaging performed in a lateral projection in conjunction with the speech pathologist evaluation. Variable consistencies of barium given per mouth. Findings: Significant abnormalities of both oral and pharyngeal phases of swallowing are demonstrated. Total fluoroscopic time 75 seconds. No aspiration or penetration identified. Abnormal video swallow. Please refer to speech pathology evaluation for more information.
== END 2017-06-09 16:23 | disposition home or self-care (01) | DRG 243 ==
LOC: EDSEX 12:37 → EDBD 12:37 → EMR 13:05 → 2E 13:35 → EDBEDREQ 15:42 → 2E 16:35 → 4E 06-04 23:51
DX: K22.4 Dyskinesia of esophagus (principal); Z68.42 Body mass index [BMI] 45.0-49.9, adult; R13.19 Other dysphagia; F41.9 Anxiety disorder, unspecified; E66.9 Obesity, unspecified; M47.892 Other spondylosis, cervical region; M17.0 Bilateral primary osteoarthritis of knee; M47.896 Other spondylosis, lumbar region; G44.209 Tension-type headache, unspecified, not intractable
CPT/HCPCS: 36415; 70450; 70486; 70543; 70551; 71045; 71275; 72125; 72141; 72146; 74220; 74230; 80053; 80061; 81025; 82550; 82553; 83690; 84165; 84238; 84443; 84484; 85025; 85651; 86021; 86039; 86140; 93005; 93880; 99285; A9585